=== PATIENT | male | born 1990 | race Caucasian/White ===

== ENCOUNTER 2022-08-09 08:12 | Emergency (ER) | payer OTHER ==
[~2022-08-09] VITALS: Ht 175.3 cm; Wt 90.9 kg
[2022-08-09] MEDS ORDERED: KETOROLAC 60MG 2ML VIAL IM ONE (09:20)
[2022-08-09 10:42] VITALS: BP 127/69; TEMP 97.5; O2SAT 100
[2022-08-13] MEDS ORDERED: IBUP80TA PO (15:02)
== END 2022-08-09 10:45 | disposition home or self-care (01) ==
LOC: M ED 08:12
DX: S86.002A Unspecified injury of left Achilles tendon, initial encounter (principal); Y93.89 Activity, other specified; Y99.1 Military activity
CPT/HCPCS: 73610; 76882; 96372; 99284; J1885

== ENCOUNTER 2022-08-16 07:21 | Day surgery (SDC) | payer OTHER ==
[~2022-08-16] VITALS: Ht 175.3 cm; Wt 94.7 kg
[~2022-08-16 07:21] MED LIST: IBUP80TA PO; TRANEXAMIC ACID 100 MG/ML 10ML VIAL IV ONE; ceFAZolin SOD 2 GM in IV 1 EA IV ONE
[2022-08-16] MEDS ORDERED: LR 1,000 ML IV SCH ×2 (08:15→13:35)
[2022-08-16] MEDS ORDERED: LIDOCAINE 2% 100MG/5ML SDV (FOR ANES.) As Ordered ONE (08:44)
[2022-08-16] MEDS ORDERED: ROCURONIUM BROMIDE 50MG/5ML VIAL As Ordered ONE (08:44)
[2022-08-16] MEDS ORDERED: SUGAMMADEX SODIUM 500 MG/5 ML VIAL (BRIDION) As Ordered ONE (08:44)
[2022-08-16] MEDS ORDERED: propofoL 200 MG/20 ML VIAL As Ordered ONE (08:44)
[2022-08-16] MEDS ORDERED: ONDANSETRON 4MG 2ML VIAL As Ordered ONE (08:44)
[2022-08-16] MEDS ORDERED: dexmedeTOMIDine (4MCG/ML)200MCG/50ML BTL (PRECEDEX) As Ordered ONE ×2 (08:44→08:45)
[2022-08-16] MEDS ORDERED: KETOROLAC 60MG 2ML VIAL As Ordered ONE (08:44)
[2022-08-16] MEDS ORDERED: ACETAMINOPHEN 1000MG 100ML IV BAG As Ordered ONE (08:45)
[2022-08-16] MEDS ORDERED: MIDAZOLAM INJ 2MG/2ML VIAL As Ordered ONE (08:47)
[2022-08-16] MEDS ORDERED: fentaNYL 100 MCG/2 ML INJECTION As Ordered ONE (08:48)
[2022-08-16] MEDS ORDERED: TRANEXAMIC ACID 100 MG/ML 10ML VIAL As Ordered ONE ×3 (09:29→12:10)
[2022-08-16] MEDS ORDERED: HYDROmorphone HCL 2MG/ML 1ML VIAL As Ordered ONE (10:17)
[2022-08-16] MEDS ORDERED: VANCOMYCIN 1000MG/20ML VIAL As Ordered ONE (11:51)
[2022-08-16] MEDS ORDERED: MORPHINE 2 MG/ML 1ML VIAL IV PRN (12:25)
[2022-08-16] MEDS ORDERED: ONDANSETRON 4MG 2ML VIAL IV PRN (12:25)
[2022-08-16] MEDS: fentaNYL 100 MCG/2 ML INJECTION IV PRN ×4 (13:19→13:38)
[2022-08-16] MEDS: oxyCODONE 5MG TAB PO PRN ×2 (13:47→15:08)
[2022-08-16 15:40] VITALS: BP 135/59; TEMP 97.6; O2SAT 94
== END 2022-08-16 15:48 | disposition home or self-care (01) ==
LOC: M SDC 07:21
PROVIDERS: ATTEND Orthopaedic Surgery
DX: S86.002A Unspecified injury of left Achilles tendon, initial encounter (principal); Y30.XXXA Falling, jumping or pushed from a high place, undetermined intent, initial encounter; Y99.1 Military activity; Y92.84 Military training ground as the place of occurrence of the external cause; Z87.891 Personal history of nicotine dependence; K21.9 Gastro-esophageal reflux disease without esophagitis
CPT/HCPCS: 27650; C1713; C9290; J0131; J0690; J1100; J1170; J1885; J2250; J2405; J3010; S0020

== ENCOUNTER 2022-09-23 13:55 | Inpatient (IN) | payer OTHER ==
[~2022-09-23] VITALS: Ht 175.3 cm; Wt 99.1 kg
[~2022-09-23 13:55] MED LIST changes: -TRANEXAMIC ACID 100 MG/ML 10ML VIAL IV ONE; -ceFAZolin SOD 2 GM in IV 1 EA IV ONE
[2022-09-23] MEDS ORDERED: ONDANSETRON 4MG 2ML VIAL IV ONE (16:10)
[2022-09-23] MEDS ORDERED: NS 1,000 ML IV ONE (16:10)
[2022-09-23] MEDS ORDERED: MORPHINE 4 MG/ML 1ML VIAL IV ONE (16:10)
[2022-09-23 16:28] LABS: BASO # 0.2 10^3/uL (0.0-0.2); BASO % 0.9 % (0.0-1.0); EOS # 0.1 10^3/uL (0.0-0.5); EOS % 0.7 % (0.0-3.0); LYMPH # 2.5 10^3/uL (1.5-5.0); LYMPH % 15.3 % (24.0-44.0); MEAN CORPUSCULAR HEMOGLOBIN 30.4 pg (27.0-33.0); MEAN CORPUSCULAR HGB CONC 34.8 g/dl (32.0-36.5); MEAN CORPUSCULAR VOLUME 87.3 fl (80.0-96.0); MONO # 1.2 10^3/uL (0.0-0.8); MONO % 7.4 % (2.0-8.0); NEUTROPHILS % 74.5 % (36.0-66.0); PLATELET COUNT, AUTOMATED 308 10^3/uL (150-450); RED BLOOD COUNT 5.27 10^6/uL (4.30-6.10); WHITE BLOOD COUNT 16.2 10^3/uL (4.0-10.0)
[2022-09-23 16:38] LABS: ERYTHROCYTE SEDIMENTATION RATE 67 mm/hr (0-15)
[2022-09-23 16:59] LABS: BLOOD UREA NITROGEN 14 MG/DL (9-23); CARBON DIOXIDE LEVEL 22 MMOL/L (20-31); CHLORIDE LEVEL 104 MMOL/L (98-107); CREATININE FOR GFR 0.71 MG/DL (0.70-1.30); GLOMERULAR FILTRATION RATE > 60.0 (>60); GLUCOSE, FASTING 80 MG/DL (60-100); POTASSIUM SERUM 4.3 MMOL/L (3.5-5.1); SODIUM LEVEL 138 MMOL/L (136-145)
[2022-09-23] MEDS ORDERED: MIDAZOLAM INJ 2MG/2ML VIAL As Ordered ONE (18:31)
[2022-09-23] MEDS ORDERED: fentaNYL 100 MCG/2 ML INJECTION As Ordered ONE (18:31)
[2022-09-23] MEDS ORDERED: ROCURONIUM BROMIDE 50MG/5ML VIAL As Ordered ONE (18:42)
[2022-09-23] MEDS ORDERED: LIDOCAINE 2% 100MG/5ML SDV (FOR ANES.) As Ordered ONE (18:42)
[2022-09-23] MEDS ORDERED: propofoL 200 MG/20 ML VIAL As Ordered ONE ×2 (18:42→20:24)
[2022-09-23] MEDS ORDERED: ceFAZolin 2 GM/D5W 50 ML IV BAG As Ordered ONE (19:00)
[2022-09-23] MEDS ORDERED: ONDANSETRON 4MG 2ML VIAL IV PRN ×2 (19:00→20:10)
[2022-09-23] MEDS ORDERED: PHENYLephrine 500MCG 5ML (100MCG/ML) SYRINGE As Ordered ONE (19:03)
[2022-09-23] MEDS ORDERED: ONDANSETRON 4MG 2ML VIAL As Ordered ONE (19:24)
[2022-09-23] MEDS ORDERED: METOCLOPRAMIDE INJ 10MG/2ML VIAL As Ordered ONE (19:24)
[2022-09-23] MEDS ORDERED: SUGAMMADEX SODIUM 500 MG/5 ML VIAL (BRIDION) As Ordered ONE (19:24)
[2022-09-23] MEDS ORDERED: ACETAMINOPHEN 1000MG 100ML IV BAG As Ordered ONE (19:28)
[2022-09-23] MEDS ORDERED: VANCOMYCIN 1000MG/20ML VIAL As Ordered ONE (19:52)
[2022-09-23] MEDS ORDERED: oxyCODONE 5MG TAB PO PRN (20:10)
[2022-09-23] MEDS ORDERED: HYDROMORPHONE HCL 0.5 MG/ 0.5 ML SYRINGE IV PRN (20:10)
[2022-09-23] MEDS ORDERED: LR 1,000 ML IV SCH ×2 (20:10→23:15)
[2022-09-23] MEDS ORDERED: fentaNYL 100 MCG/2 ML INJECTION IV PRN (20:10)
[2022-09-23] MEDS ORDERED: MEPERIDINE 25 MG/ML 1ML VIAL As Ordered ONE (20:48)
[2022-09-23] MEDS: MEPERIDINE 25 MG/ML 1ML VIAL IV PRN ×2 (20:52→21:06)
[2022-09-23 21:45] VITALS: BP 134/74; TEMP 97.2; O2SAT 97
[2022-09-23] MEDS: CEFTAROLINE FOSAMIL 600 MG in D5W MINI-BAG PLUS 50 ML IV SCH (22:13)
[2022-09-23] MEDS: KETOROLAC 30 MG/ML 1ML VIAL IV PRN (22:13)
[2022-09-23 22:15] VITALS: BP 130/68; TEMP 98.4; O2SAT 95
[2022-09-23 23:14] VITALS: BP 108/58; TEMP 98.4; O2SAT 94
[2022-09-24] VITALS (7 sets, daily range): BP systolic 106–128; BP diastolic 59–78; TEMP 97.1–98.8; O2SAT 92–97
[2022-09-24] MEDS ORDERED: ACET-907 PO (02:09)
[2022-09-24] MEDS ORDERED: ASPI-161 PO (02:09)
[2022-09-24] MEDS ORDERED: ONDA-195 PO (02:09)
[2022-09-24] MEDS ORDERED: CELE1CAP4 PO (02:09)
[2022-09-24] MEDS ORDERED: VITMTA PO (02:09)
[2022-09-24] MEDS ORDERED: OXYC-517 PO (02:09)
[2022-09-24] MEDS ORDERED: GABA-282 PO (02:09)
[2022-09-24] MEDS ORDERED: HOME MED LIST COMPLETE! XX SCH (02:10)
[2022-09-24] MEDS ORDERED: MORPHINE 4 MG/ML 1ML VIAL IV ONE (02:15)
[2022-09-24 07:19] LABS: BASO # 0.1 10^3/uL (0.0-0.2); EOS # 0.2 10^3/uL (0.0-0.5); EOS % 1.8 % (0.0-3.0); HEMATOCRIT 38.2 % (42.0-52.0); LYMPH # 2.5 10^3/uL (1.5-5.0); LYMPH % 25.4 % (24.0-44.0); MEAN CORPUSCULAR HGB CONC 34.3 g/dl (32.0-36.5); MEAN CORPUSCULAR VOLUME 90.5 fl (80.0-96.0); MONO # 1.4 10^3/uL (0.0-0.8); MONO % 13.9 % (2.0-8.0); NEUTROPHILS # 5.5 10^3/uL (1.5-8.5); NEUTROPHILS % 56.6 % (36.0-66.0); PLATELET COUNT, AUTOMATED 237 10^3/uL (150-450); RED BLOOD COUNT 4.22 10^6/uL (4.30-6.10); WHITE BLOOD COUNT 9.7 10^3/uL (4.0-10.0)
[2022-09-24 07:24] LABS: BLOOD UREA NITROGEN 16 MG/DL (9-23); CALCIUM LEVEL 8.5 MG/DL (8.5-10.1); CARBON DIOXIDE LEVEL 28 MMOL/L (20-31); CHLORIDE LEVEL 102 MMOL/L (98-107); CREATININE FOR GFR 0.99 MG/DL (0.70-1.30); GLOMERULAR FILTRATION RATE > 60.0 (>60); GLUCOSE, FASTING 85 MG/DL (60-100); HEMOGLOBIN 13.1 g/dl (13.5-17.5); POTASSIUM SERUM 4.1 MMOL/L (3.5-5.1); SODIUM LEVEL 139 MMOL/L (136-145)
[2022-09-24] MEDS: KETOROLAC 30 MG/ML 1ML VIAL IV PRN (07:32)
[2022-09-24] MEDS: PANTOPRAZOLE 40MG TAB (PROTONIX) PO SCH (08:51)
[2022-09-24] MEDS: LACTOBACILLUS ACIDOPHILUS CAP (BACID) PO SCH ×2 (08:52→18:26)
[2022-09-24] MEDS: CEFTAROLINE FOSAMIL 600 MG in D5W MINI-BAG PLUS 50 ML IV SCH ×2 (08:53→20:49)
[2022-09-24] MEDS: ENOXAPARIN 40MG/0.4ML SYRINGE (J1650 PER 10MG) SC SCH (08:53)
[2022-09-24] MEDS ORDERED: MORPHINE 2 MG/ML 1ML VIAL IV PRN (10:55)
[2022-09-24] MEDS: GABAPENTIN 300 MG CAP PO SCH ×2 (15:56→20:49)
[2022-09-24] MEDS: oxyCODONE 5MG TAB PO PRN ×2 (15:58→20:50)
[2022-09-24] MEDS: ACETAMINOPHEN 500 MG TAB PO SCH (18:26)
[2022-09-25] VITALS (8 sets, daily range): BP systolic 111–149; BP diastolic 69–92; TEMP 96.2–98.6; O2SAT 93–96
[2022-09-25] MEDS: ACETAMINOPHEN 500 MG TAB PO SCH ×5 (06:00→23:43)
[2022-09-25 06:16] LABS: BASO # 0.1 10^3/uL (0.0-0.2); BASO % 1.3 % (0.0-1.0); EOS # 0.2 10^3/uL (0.0-0.5); HEMATOCRIT 34.8 % (42.0-52.0); HEMOGLOBIN 11.9 g/dl (13.5-17.5); LYMPH % 34.3 % (24.0-44.0); MEAN CORPUSCULAR HEMOGLOBIN 30.7 pg (27.0-33.0); MEAN CORPUSCULAR HGB CONC 34.2 g/dl (32.0-36.5); MEAN CORPUSCULAR VOLUME 89.9 fl (80.0-96.0); MONO % 11.4 % (2.0-8.0); NEUTROPHILS # 4.3 10^3/uL (1.5-8.5); NEUTROPHILS % 49.7 % (36.0-66.0); PLATELET COUNT, AUTOMATED 234 10^3/uL (150-450); RED BLOOD COUNT 3.87 10^6/uL (4.30-6.10); WHITE BLOOD COUNT 8.6 10^3/uL (4.0-10.0)
[2022-09-25 06:30] LABS: ERYTHROCYTE SEDIMENTATION RATE 46 mm/hr (0-15)
[2022-09-25 06:47] LABS: BLOOD UREA NITROGEN 11 MG/DL (9-23); CALCIUM LEVEL 8.8 MG/DL (8.5-10.1); CARBON DIOXIDE LEVEL 28 MMOL/L (20-31); CHLORIDE LEVEL 106 MMOL/L (98-107); CREATININE FOR GFR 0.91 MG/DL (0.70-1.30); GLOMERULAR FILTRATION RATE > 60.0 (>60); GLUCOSE, FASTING 85 MG/DL (60-100); POTASSIUM SERUM 4.4 MMOL/L (3.5-5.1); SODIUM LEVEL 141 MMOL/L (136-145)
[2022-09-25] MEDS: LACTOBACILLUS ACIDOPHILUS CAP (BACID) PO SCH ×2 (08:00→17:06)
[2022-09-25] MEDS: GABAPENTIN 300 MG CAP PO SCH ×3 (08:06→20:34)
[2022-09-25] MEDS: PANTOPRAZOLE 40MG TAB (PROTONIX) PO SCH (08:06)
[2022-09-25] MEDS: CEFTAROLINE FOSAMIL 600 MG in D5W MINI-BAG PLUS 50 ML IV SCH ×2 (08:16→20:34)
[2022-09-25] MEDS: KETOROLAC 30 MG/ML 1ML VIAL IV PRN (08:17)
[2022-09-25] MEDS: ENOXAPARIN 40MG/0.4ML SYRINGE (J1650 PER 10MG) SC SCH (08:17)
[2022-09-25] MEDS ORDERED: LIDOCAINE 1% MDV 20ML VIAL As Ordered ONE (10:15)
[2022-09-25] MEDS ORDERED: ROCURONIUM BROMIDE 50MG/5ML VIAL As Ordered ONE (11:43)
[2022-09-25] MEDS ORDERED: ONDANSETRON 4MG 2ML VIAL As Ordered ONE (11:43)
[2022-09-25] MEDS ORDERED: LIDOCAINE 2% 100MG/5ML SDV (FOR ANES.) As Ordered ONE (11:43)
[2022-09-25] MEDS ORDERED: propofoL 200 MG/20 ML VIAL As Ordered ONE (11:43)
[2022-09-25] MEDS ORDERED: SUGAMMADEX SODIUM 500 MG/5 ML VIAL (BRIDION) As Ordered ONE (11:43)
[2022-09-25] MEDS ORDERED: MIDAZOLAM INJ 2MG/2ML VIAL As Ordered ONE (11:59)
[2022-09-25] MEDS ORDERED: fentaNYL 100 MCG/2 ML INJECTION As Ordered ONE ×2 (11:59→13:36)
[2022-09-25] MEDS ORDERED: VANCOMYCIN 1000MG/20ML VIAL As Ordered ONE (13:14)
[2022-09-25] MEDS ORDERED: TRANEXAMIC ACID 100 MG/ML 10ML VIAL As Ordered ONE (13:19)
[2022-09-25] MEDS ORDERED: ACETAMINOPHEN 1000MG 100ML IV BAG As Ordered ONE (13:35)
[2022-09-25] MEDS ORDERED: fentaNYL 100 MCG/2 ML INJECTION IV PRN (14:20)
[2022-09-25] MEDS ORDERED: ONDANSETRON 4MG 2ML VIAL IV PRN (14:20)
[2022-09-25] MEDS ORDERED: LR 1,000 ML IV SCH (14:20)
[2022-09-25] MEDS: oxyCODONE 5MG TAB PO PRN ×2 (15:31→22:11)
[2022-09-25] MEDS ORDERED: SODIUM CHLORIDE 0.9% INJ 10 ML SYR IV PRN (17:40)
[2022-09-25] MEDS: SODIUM CHLORIDE 0.9% INJ 10 ML SYR IV SCH (18:35)
[2022-09-25] MEDS: LR 1,000 ML IV SCH (20:34)
[2022-09-26 01:00] VITALS: BP 113/64; TEMP 96.6; O2SAT 94
[2022-09-26 05:00] VITALS: BP 126/70; TEMP 96; O2SAT 97
[2022-09-26] MEDS: ACETAMINOPHEN 500 MG TAB PO SCH ×3 (06:09→18:36)
[2022-09-26] MEDS: SODIUM CHLORIDE 0.9% INJ 10 ML SYR IV SCH ×2 (06:09→18:37)
[2022-09-26 06:56] LABS: BASO # 0.1 10^3/uL (0.0-0.2); BASO % 0.9 % (0.0-1.0); EOS # 0.1 10^3/uL (0.0-0.5); EOS % 0.7 % (0.0-3.0); HEMATOCRIT 33.1 % (42.0-52.0); HEMOGLOBIN 11.3 g/dl (13.5-17.5); LYMPH % 31.1 % (24.0-44.0); MEAN CORPUSCULAR HEMOGLOBIN 30.3 pg (27.0-33.0); MEAN CORPUSCULAR HGB CONC 34.1 g/dl (32.0-36.5); MEAN CORPUSCULAR VOLUME 88.7 fl (80.0-96.0); MONO # 0.9 10^3/uL (0.0-0.8); MONO % 9.2 % (2.0-8.0); NEUTROPHILS # 5.6 10^3/uL (1.5-8.5); NEUTROPHILS % 57.4 % (36.0-66.0); PLATELET COUNT, AUTOMATED 264 10^3/uL (150-450); RED BLOOD COUNT 3.73 10^6/uL (4.30-6.10); WHITE BLOOD COUNT 9.7 10^3/uL (4.0-10.0)
[2022-09-26 07:27] LABS: BLOOD UREA NITROGEN 10 MG/DL (9-23); CALCIUM LEVEL 8.8 MG/DL (8.5-10.1); CARBON DIOXIDE LEVEL 29 MMOL/L (20-31); CHLORIDE LEVEL 102 MMOL/L (98-107); CREATININE FOR GFR 0.82 MG/DL (0.70-1.30); GLOMERULAR FILTRATION RATE > 60.0 (>60); GLUCOSE, FASTING 97 MG/DL (60-100); POTASSIUM SERUM 4.2 MMOL/L (3.5-5.1); SODIUM LEVEL 138 MMOL/L (136-145)
[2022-09-26] MEDS: oxyCODONE 5MG TAB PO PRN ×3 (09:47→20:41)
[2022-09-26] MEDS: LACTOBACILLUS ACIDOPHILUS CAP (BACID) PO SCH ×2 (09:47→18:36)
[2022-09-26] MEDS: PANTOPRAZOLE 40MG TAB (PROTONIX) PO SCH (09:47)
[2022-09-26] MEDS: CEFTAROLINE FOSAMIL 600 MG in D5W MINI-BAG PLUS 50 ML IV SCH (09:47)
[2022-09-26] MEDS: GABAPENTIN 300 MG CAP PO SCH ×3 (09:47→20:41)
[2022-09-26] MEDS: ENOXAPARIN 40MG/0.4ML SYRINGE (J1650 PER 10MG) SC SCH (09:48)
[2022-09-26 10:00] VITALS: BP 130/64; TEMP 97.3; O2SAT 94
[2022-09-26] MEDS: KETOROLAC 30 MG/ML 1ML VIAL IV PRN (12:47)
[2022-09-26 14:00] VITALS: BP 136/70; TEMP 97.8; O2SAT 95
[2022-09-26] MEDS: LR 1,000 ML IV SCH (14:06)
[2022-09-26] MEDS: DAPTOmycin 750 MG in NS 50 ML IV SCH (16:28)
[2022-09-26] MEDS: metroNIDAZOLE (FLAGYL) 500MG TABLET PO SCH ×2 (17:01→20:40)
[2022-09-26 20:00] VITALS: BP 124/56; TEMP 96.7; O2SAT 96
[2022-09-27] MEDS ORDERED: CEFTAROLINE FOSAMIL 600 MG in D5W MINI-BAG PLUS 50 ML IV SCH ×2
[2022-09-27] MEDS: ACETAMINOPHEN 500 MG TAB PO SCH ×5 (00:05→19:23)
[2022-09-27 05:59] VITALS: BP 123/62; TEMP 96.3; O2SAT 93
[2022-09-27] MEDS: SODIUM CHLORIDE 0.9% INJ 10 ML SYR IV SCH ×2 (06:12→18:00)
[2022-09-27 06:53] LABS: BASO # 0.1 10^3/uL (0.0-0.2); BASO % 1.7 % (0.0-1.0); EOS # 0.2 10^3/uL (0.0-0.5); HEMATOCRIT 33.1 % (42.0-52.0); LYMPH # 3.8 10^3/uL (1.5-5.0); LYMPH % 48.4 % (24.0-44.0); MEAN CORPUSCULAR HEMOGLOBIN 30.3 pg (27.0-33.0); MEAN CORPUSCULAR HGB CONC 33.2 g/dl (32.0-36.5); MEAN CORPUSCULAR VOLUME 91.2 fl (80.0-96.0); MONO # 0.6 10^3/uL (0.0-0.8); MONO % 7.9 % (2.0-8.0); NEUTROPHILS % 38.9 % (36.0-66.0); PLATELET COUNT, AUTOMATED 257 10^3/uL (150-450); RED BLOOD COUNT 3.63 10^6/uL (4.30-6.10); WHITE BLOOD COUNT 7.8 10^3/uL (4.0-10.0)
[2022-09-27 07:18] LABS: BLOOD UREA NITROGEN 11 MG/DL (9-23); CALCIUM LEVEL 8.4 MG/DL (8.5-10.1); CARBON DIOXIDE LEVEL 28 MMOL/L (20-31); CHLORIDE LEVEL 106 MMOL/L (98-107); GLOMERULAR FILTRATION RATE > 60.0 (>60); GLUCOSE, FASTING 83 MG/DL (60-100); POTASSIUM SERUM 4.2 MMOL/L (3.5-5.1); SODIUM LEVEL 140 MMOL/L (136-145)
[2022-09-27 08:05] LABS: ERYTHROCYTE SEDIMENTATION RATE 40 mm/hr (0-15)
[2022-09-27] MEDS: GABAPENTIN 300 MG CAP PO SCH ×3 (08:23→19:23)
[2022-09-27] MEDS: PANTOPRAZOLE 40MG TAB (PROTONIX) PO SCH (08:23)
[2022-09-27] MEDS: LACTOBACILLUS ACIDOPHILUS CAP (BACID) PO SCH ×2 (08:23→18:00)
[2022-09-27] MEDS: metroNIDAZOLE (FLAGYL) 500MG TABLET PO SCH ×3 (08:23→19:24)
[2022-09-27] MEDS: ENOXAPARIN 40MG/0.4ML SYRINGE (J1650 PER 10MG) SC SCH (08:25)
[2022-09-27] MEDS: oxyCODONE 5MG TAB PO PRN ×3 (08:42→20:03)
[2022-09-27] MEDS: LR 1,000 ML IV SCH (12:04)
[2022-09-27] MEDS ORDERED: RISATAB3 PO ×2 (14:33→19:09)
[2022-09-27] MEDS ORDERED: DAPT500V8 IV (14:33)
[2022-09-27] MEDS ORDERED: OXYC-517 PO ×2 (14:33→19:09)
[2022-09-27] MEDS ORDERED: METR-265 PO ×2 (14:33→19:09)
[2022-09-27 15:30] VITALS: BP 132/75; TEMP 97.1; O2SAT 97
[2022-09-27] MEDS: DAPTOmycin 750 MG in NS 50 ML IV SCH (15:57)
== END 2022-09-27 20:11 | disposition home health service (06) | DRG 858 ==
LOC: M ED 13:55 → M ED INP 17:03 → M MS5PR 21:34
PROVIDERS: ADMIT Internal Medicine Nephrology; ATTEND Student in an Organized Health Care Education/Training Program
PROC: 0LDT0ZZ Extraction of Left Ankle Tendon, Open Approach (ICD-10-PCS; principal; 2022-09-23 14:15)
PROC: 0KDT0ZZ Extraction of Left Lower Leg Muscle, Open Approach (ICD-10-PCS; 2022-09-25)
PROC: 02HV33Z Insertion of Infusion Device into Superior Vena Cava, Percutaneous Approach (ICD-10-PCS; 2022-09-25)
DX: T81.49XA Infection following a procedure, other surgical site, initial encounter (principal); L08.9 Local infection of the skin and subcutaneous tissue, unspecified; F17.290 Nicotine dependence, other tobacco product, uncomplicated; Z79.899 Other long term (current) drug therapy; Z79.82 Long term (current) use of aspirin

== ENCOUNTER → 2022-10-01 | Outpatient (REF) | payer OTHER ==
[~2022-10-01] MED LIST changes: +ACET-907 PO; +ASPI-161 PO; +CELE1CAP4 PO; +DAPT500V8 IV; +GABA-282 PO; +METR-265 PO; +ONDA-195 PO; +OXYC-517 PO; +RISATAB3 PO; +VITMTA PO
[2022-10-01 12:24] LABS: HEMATOCRIT 38.3 % (42.0-52.0); HEMOGLOBIN 13.1 g/dl (13.5-17.5); MEAN CORPUSCULAR HEMOGLOBIN 30.8 pg (27.0-33.0); MEAN CORPUSCULAR HGB CONC 34.2 g/dl (32.0-36.5); MEAN CORPUSCULAR VOLUME 89.9 fl (80.0-96.0); PLATELET COUNT, AUTOMATED 396 10^3/uL (150-450); RED BLOOD COUNT 4.26 10^6/uL (4.30-6.10); WHITE BLOOD COUNT 8.2 10^3/uL (4.0-10.0)
[2022-10-01 12:53] LABS: CPK CREATINE PHOSPHOKINASE 65 U/L (46-171)
[2022-10-01 12:54] LABS: BLOOD UREA NITROGEN 17 MG/DL (9-23); CARBON DIOXIDE LEVEL 23 MMOL/L (20-31); CHLORIDE LEVEL 106 MMOL/L (98-107); CREATININE FOR GFR 0.78 MG/DL (0.70-1.30); GLOMERULAR FILTRATION RATE > 60.0 (>60); GLUCOSE, FASTING 103 MG/DL (60-100); POTASSIUM SERUM 4.3 MMOL/L (3.5-5.1); SODIUM LEVEL 138 MMOL/L (136-145)
== END ==
LOC: M LAB REF 11:33
PROVIDERS: ATTEND Internal Medicine Infectious Disease
DX: Z51.81 Encounter for therapeutic drug level monitoring (principal); B95.61 Methicillin susceptible Staphylococcus aureus infection as the cause of diseases classified elsewhere; Z79.899 Other long term (current) drug therapy

== ENCOUNTER → 2022-10-08 | Outpatient (REF) | payer OTHER ==
[2022-10-08 12:43] LABS: HEMATOCRIT 40.9 % (42.0-52.0); HEMOGLOBIN 13.8 g/dl (13.5-17.5); MEAN CORPUSCULAR HEMOGLOBIN 30.5 pg (27.0-33.0); MEAN CORPUSCULAR HGB CONC 33.7 g/dl (32.0-36.5); MEAN CORPUSCULAR VOLUME 90.3 fl (80.0-96.0); PLATELET COUNT, AUTOMATED 313 10^3/uL (150-450); RED BLOOD COUNT 4.53 10^6/uL (4.30-6.10); WHITE BLOOD COUNT 5.7 10^3/uL (4.0-10.0)
[2022-10-08 13:13] LABS: BLOOD UREA NITROGEN 11 MG/DL (9-23); CARBON DIOXIDE LEVEL 22 MMOL/L (20-31); CHLORIDE LEVEL 105 MMOL/L (98-107); CPK CREATINE PHOSPHOKINASE 71 U/L (46-171); CREATININE FOR GFR 0.78 MG/DL (0.70-1.30); GLOMERULAR FILTRATION RATE > 60.0 (>60); GLUCOSE, FASTING 160 MG/DL (60-100); POTASSIUM SERUM 4.2 MMOL/L (3.5-5.1); SODIUM LEVEL 139 MMOL/L (136-145)
[2022-10-08 13:14] LABS: C REACTIVE PROTEIN QUANTITATIV < 0.40 MG/DL (<1.0)
== END ==
LOC: M LAB REF 11:54
PROVIDERS: ATTEND Internal Medicine Infectious Disease
DX: B99.8 Other infectious disease (principal)

== ENCOUNTER → 2022-10-15 | Outpatient (REF) | payer OTHER ==
[2022-10-15 16:07] LABS: HEMATOCRIT 42.2 % (42.0-52.0); HEMOGLOBIN 14.4 g/dl (13.5-17.5); MEAN CORPUSCULAR HGB CONC 34.1 g/dl (32.0-36.5); MEAN CORPUSCULAR VOLUME 90.8 fl (80.0-96.0); PLATELET COUNT, AUTOMATED 252 10^3/uL (150-450); RED BLOOD COUNT 4.65 10^6/uL (4.30-6.10); WHITE BLOOD COUNT 6.3 10^3/uL (4.0-10.0)
[2022-10-15 16:21] LABS: CPK CREATINE PHOSPHOKINASE 80 U/L (46-171)
[2022-10-15 16:22] LABS: C REACTIVE PROTEIN QUANTITATIV < 0.40 MG/DL (<1.0)
[2022-10-15 16:23] LABS: BLOOD UREA NITROGEN 16 MG/DL (9-23); CALCIUM LEVEL 9.1 MG/DL (8.5-10.1); CARBON DIOXIDE LEVEL 24 MMOL/L (20-31); CHLORIDE LEVEL 107 MMOL/L (98-107); CREATININE FOR GFR 0.76 MG/DL (0.70-1.30); GLOMERULAR FILTRATION RATE > 60.0 (>60); GLUCOSE, FASTING 81 MG/DL (60-100); POTASSIUM SERUM 4.2 MMOL/L (3.5-5.1); SODIUM LEVEL 141 MMOL/L (136-145)
== END ==
LOC: M LAB REF 15:32
PROVIDERS: ATTEND Internal Medicine Infectious Disease
DX: B99.9 Unspecified infectious disease (principal)

== ENCOUNTER 2023-05-16 06:14 | Day surgery (SDC) | payer OTHER ==
[~2023-05-16] VITALS: Ht 175.3 cm; Wt 98.6 kg
[~2023-05-16 06:14] MED LIST changes: -ASPI-161 PO; +ASPI-615 PO; +IBUP200T46 PO
[2023-05-16] MEDS ORDERED: KETOROLAC 60MG 2ML VIAL As Ordered ONE (06:56)
[2023-05-16] MEDS ORDERED: ONDANSETRON 4MG 2ML VIAL As Ordered ONE (06:56)
[2023-05-16] MEDS ORDERED: ROCURONIUM BROMIDE 50MG/5ML VIAL As Ordered ONE (06:56)
[2023-05-16] MEDS ORDERED: propofoL 200 MG/20 ML VIAL As Ordered ONE (06:57)
[2023-05-16] MEDS ORDERED: LIDOCAINE 2% 100MG/5ML SDV (FOR ANES.) As Ordered ONE (06:57)
[2023-05-16] MEDS ORDERED: SUGAMMADEX SODIUM 500 MG/5 ML VIAL (BRIDION) As Ordered ONE (06:57)
[2023-05-16] MEDS ORDERED: fentaNYL 100 MCG/2 ML INJECTION As Ordered ONE (06:57)
[2023-05-16] MEDS ORDERED: MIDAZOLAM INJ 2MG/2ML VIAL As Ordered ONE (06:57)
[2023-05-16] MEDS ORDERED: HYDROmorphone HCL 2MG/ML 1ML VIAL As Ordered ONE (06:58)
[2023-05-16] MEDS: LR 1,000 ML IV SCH (07:25)
[2023-05-16] MEDS: fentaNYL 100 MCG/2 ML INJECTION IV PRN (07:50)
[2023-05-16] MEDS: MIDAZOLAM INJ 2MG/2ML VIAL IV PRN (07:50)
[2023-05-16] MEDS: ROPIvacaine 0.5% 30ML VIAL PN ONE (07:51)
[2023-05-16] MEDS: EPINEPHrine INJ 1 MG/ML 1ML AMP PN ONE (07:51)
[2023-05-16] MEDS: LIDOCAINE 1% SDV 5ML VIAL PN ONE (07:51)
[2023-05-16] MEDS ORDERED: ACETAMINOPHEN 1000MG 100ML IV BAG As Ordered ONE (08:29)
[2023-05-16] MEDS: ceFAZolin SOD 2 GM in IV 1 EA IV ONE (08:55)
[2023-05-16] MEDS: TRANEXAMIC ACID 100 MG/ML 10ML VIAL IV ONE (08:55)
[2023-05-16] MEDS: TRANEXAMIC ACID 100 MG/ML 10ML VIAL As Ordered ONE (09:01)
[2023-05-16] MEDS: VANCOMYCIN 1000MG/20ML VIAL As Ordered ONE (10:10)
[2023-05-16] MEDS ORDERED: LR 1,000 ML IV SCH (11:05)
[2023-05-16] MEDS ORDERED: fentaNYL 100 MCG/2 ML INJECTION IV PRN (11:05)
[2023-05-16] MEDS ORDERED: MEPERIDINE 50 MG/ML 1ML VIAL As Ordered ONE (11:20)
[2023-05-16] MEDS: HYDROMORPHONE HCL 0.5 MG/ 0.5 ML SYRINGE IV PRN (11:41)
[2023-05-16] MEDS: ONDANSETRON 4MG 2ML VIAL IV PRN (11:42)
[2023-05-16] MEDS: oxyCODONE 5MG TAB PO PRN (11:42)
[2023-05-16 13:22] VITALS: BP 130/71; TEMP 96.8; O2SAT 95
== END 2023-05-16 13:30 | disposition home or self-care (01) ==
LOC: M SDC 06:14
PROVIDERS: ATTEND Student in an Organized Health Care Education/Training Program
DX: M67.874 Other specified disorders of tendon, left ankle and foot (principal)
CPT/HCPCS: 27680; 27691; 76000; C1713; J0131; J0690; J1100; J1170; J1885; J2175; J2250; J2405; J3010; J3370

== ENCOUNTER → 2023-09-18 | Outpatient (REF) | LOC: M PLAIMG 13:14 | PROVIDERS: ATTEND Nurse Practitioner Family | DX: M25.551 Pain in right hip (principal); M25.552 Pain in left hip; M25.521 Pain in right elbow; M25.522 Pain in left elbow; M25.531 Pain in right wrist; M25.532 Pain in left wrist; M79.641 Pain in right hand; M79.642 Pain in left hand; M25.571 Pain in right ankle and joints of right foot; M25.572 Pain in left ankle and joints of left foot; M79.671 Pain in right foot ==